=== PATIENT | female | born 1965 | race Caucasian/White ===

== ENCOUNTER 2017-03-23 10:53 | Emergency (ER) | payer OTHER ==
[2017-03-23 11:16] VITALS: BP 130/79
--- NOTE | 2017-03-23 12:06 | UC ---
Ear Complaint HPI - HPI Summary HPI Summary: Pt c/o bialteral ear pain an ddrainage X 2 week.s Pt had ear tubes placed [address] Gardner. Pt denies injury or recent illness - History of Current Complaint Chief Complaint: UCEar Stated Complaint: BILATERAL EAR PAIN Time Seen by Provider: 03/23/17 11:44 Hx Obtained From: Patient Hx Last Menstrual Period: 4-5 months ?: No Onset/Duration: Gradual Onset, Lasting Weeks - 2 Severity Initially: Mild Severity Currently: Mild Associated Signs/Symptoms: Positive: Discharge - Allergies/Home Medications Allergies/Adverse Reactions: Allergies Allergy/AdvReac Type Severity Reaction Status Date / Time No Known Allergies Allergy Verified 03/23/17 11:16 PMH/Surg Hx/FS Hx/Imm Hx Previously Healthy: Yes - Surgical History Surgical History: Yes Surgery Procedure, Year, and Place: ear tubes, Gastric tube in place - Family History Known Family History: Positive: Cardiac Disease - Social History Lives: With Family Alcohol Use: None Substance Use Type: None Smoking Status (MU): Heavy Every Day Tobacco Smoker Review of Systems Constitutional: Negative Skin: Negative Eyes: Negative ENT: Ear Ache - bilateral Respiratory: Negative Cardiovascular: Negative Gastrointestinal: Negative Genitourinary: Negative Motor: Negative Neurovascular: Negative Musculoskeletal: Negative Neurological: Negative Psychological: Negative All Other Systems Reviewed And Are Negative: Yes Physical Exam Triage Information Reviewed: Yes Appearance: Well-Appearing Vital Signs: Initial Vital Signs Temp 97.4 F 03/23/17 11:06 Pulse 68 03/23/17 11:06 Resp 18 03/23/17 11:06 BP 130/79 03/23/17 11:06 Eye Exam: Normal ENT Exam: Other ENT: Positive: Other: - Left TM ruptured, right ear canal with clear, yellow drainage Neck exam: Normal Respiratory Exam: Normal Cardiovascular Exam: Normal Musculoskeletal Exam: Normal Neurological Exam: Normal Psychological Exam: Normal Skin Exam: Normal Ear Complaint Course/Dx - Course Course Of Treatment: [facility] pt requested to be referred to another provider than Dr. Gardner. - Differential Dx/Diagnosis Differential Diagnosis/HQI/PQRI: Otitis Media, Perforated TM Provider Diagnoses: left TM ruptured. right TM serous otitis Discharge - Discharge Plan Condition: Stable Disposition: HOME Prescriptions: Amoxicillin CAP* [Amoxicillin 500 MG CAP*] 500 mg PO Q12H #10 cap Ciprofloxacin HCl (Otic) [Ciprofloxacin 0.2% EAR DROPS] 2 drop OT Q8H #1 bottle Patient Education Materials: Ruptured Eardrum (ED) Referrals: Kristina Calderon MD [Primary Care Provider] - Chandu Lao MD [Medical Doctor] -
== END 2017-03-23 12:17 | disposition home or self-care (01) ==
LOC: UCCORT 10:53
DX: H72.92 Unspecified perforation of tympanic membrane, left ear (principal); H65.91 Unspecified nonsuppurative otitis media, right ear; Z72.0 Tobacco use
CPT/HCPCS: 99212; G0463

== ENCOUNTER 2022-07-20 09:46 | Observation (INO) ==
[~2022-07-20 09:46] MED LIST: Buffered Lidocaine 1% SYRIN 1 ml INTRADERM ONE; Bupivacaine 0.25% SDV 30 ML ONE; Dexamethasone IV 4 MG/ML VIAL 1 ml VIAL ONE; HYDROmorphone 1 MG/1 ML SYRINGE IV PRN; Lactated Ringers 1000 ml BAG 1,000 ML IV SCH; Lidocaine 2% PF 5 ML VIAL ONE; Midazolam 2 mg/2 ml VIAL 1 mg/ml 2 ml VIAL (2 mg) ONE; Naloxone 0.4 mg VIAL 0.4 mg/ml 1 ml VIAL IV PRN; Ondansetron 4 mg VIAL 2 MG/ML 2 ml VIAL ONE; Prochlorperazine 5 mg/ml 2 ml VIAL (10 mg) IV PRN; Propofol 0 MG/0 ML BTL ONE; Propofol 10 MG/ML 20 ML BTL ONE; fentaNYL 100 mcg/2 ml 50 MCG/ML VIAL ONE
[2022-07-20] MEDS ORDERED: ceFAZolin 2 GM PREMIX 2 GM/50 ML BAG ONE (09:57)
[2022-07-20] MEDS ORDERED: Ondansetron 4 mg VIAL 2 MG/ML 2 ml VIAL ONE (11:40)
[2022-07-20] MEDS ORDERED: Propofol 10 MG/ML 20 ML BTL ONE (11:40)
[2022-07-20] MEDS ORDERED: Dexamethasone IV 4 MG/ML VIAL 1 ml VIAL ONE (11:40)
[2022-07-20] MEDS ORDERED: Lidocaine 2% PF 5 ML VIAL ONE (12:03)
[2022-07-20] MEDS ORDERED: HYDROmorphone 0.5 MG/0.5 ML SYRINGE ONE ×2 (12:16→13:53)
[2022-07-20] MEDS ORDERED: Prochlorperazine 5 mg/ml 2 ml VIAL (10 mg) ONE (15:30)
[2022-07-20] MEDS ORDERED: Morphine 2 MG/ML SYRINGE IV PRN (16:24)
[2022-07-20] MEDS ORDERED: Ondansetron ODT 4 mg TAB 4 MG TAB PO PRN (16:24)
[2022-07-20] MEDS ORDERED: Magnesium Hydroxide LIQ 30 ML UDC PO PRN (16:24)
[2022-07-20] MEDS ORDERED: Ondansetron 4 mg VIAL 2 MG/ML 2 ml VIAL IV PRN (16:24)
[2022-07-20] MEDS ORDERED: Lactulose 30 ml UDC PO PRN (16:24)
[2022-07-20] MEDS ORDERED: Albuterol HFA INHALER 8 gm MDI INH PRN (17:45)
[2022-07-20] MEDS: ceFAZolin 1 GM ADVAN 1 GM in NS 0.9% 50 ML 50 ML IVPB SCH (21:35)
[2022-07-20] MEDS: Magnesium Hydroxide LIQ 30 ML UDC PO SCH (21:38)
[2022-07-21] MEDS: ceFAZolin 1 GM ADVAN 1 GM in NS 0.9% 50 ML 50 ML IVPB SCH ×2 (05:12→12:28)
[2022-07-21] MEDS: Magnesium Hydroxide LIQ 30 ML UDC PO SCH (08:48)
[2022-07-21] MEDS ORDERED: Vitamin THERAPEUTIC TAB PO SCH (09:00)
[2022-07-21] MEDS ORDERED: Heparin 5000 UNITS/ML 1 mL VIAL SUBCUT SCH (09:00)
[2022-07-21] MEDS ORDERED: FLUTICAS/UMECLI/VILANT 200-62.5-25 MDI (NF) INH SCH (09:00)
[2022-07-21 09:23] VITALS: BP 134/73
== END 2022-07-21 13:55 | disposition home or self-care (01) ==
LOC: OR 09:46 → SSU 09:46
PROVIDERS: ADMIT Orthopaedic Surgery; ATTEND Orthopaedic Surgery